=== PATIENT | male | born 1980 | race Caucasian/White ===

== ENCOUNTER → 2018-08-15 09:58 | Outpatient (CLI) | payer OTHER, MEDICAID, SELFPAY ==
[2018-08-15 10:37] LABS: Appearance Urine UA CLEAR; Bilirubin Urine UA NEGATIVE (NEGATIVE); Color Urine UA YELLOW; Glucose Urine UA NEGATIVE (Negative); Ketones Urine UA NEGATIVE (NEGATIVE); Leukocyte Esterase Urine UA NEGATIVE (NEGATIVE); Nitrite Urine UA NEGATIVE (Negative); Occult Blood Urine UA TRACE-LYSED (Negative); Protein Urine UA NEGATIVE (Negative); Urobilinogen Urine UA 0.2 E.U./dL (0.2)
[2018-08-15 10:43] LABS: Add Manual Diff / Slide Review NO; Basophils Absolute Auto 100 /uL (0-100); Basophils Percent Auto 1.2 % (0-2); Eosinophils Absolute Auto 100 /uL (0-450); Eosinophils Percent Auto 2.8 % (2-4); Hematocrit 45.9 % (41-53); Hemoglobin 15.5 g/dL (13.5-17.5); Lymphocytes Absolute Auto 2000 /uL (1100-4500); Lymphocytes Percent Auto 45.9 % (25-40); Mean Corpuscular HGB Conc 33.8 % (30-36); Mean Corpuscular Hemoglobin 32.2 PG (26-34); Mean Corpuscular Volume 95.1 fL (80-100); Monocytes Absolute Auto 400 /uL (0-900); Monocytes Percent Auto 9.1 % (3-14); Neutrophils Absolute Auto 1800 /uL (1500-7000); Platelet Count 275 X10^3/uL (150-400); Red Blood Cell Count 4.82 X10^6/uL (4.5-5.9); Red Cell Distribution Width 12.6 % (11.6-14.8); White Blood Cell Count 4.5 X10^3/uL (4.5-11.0)
[2018-08-15 10:47] LABS: Alanine Aminotransferase 31 IU/L (21-72); Albumin 4.8 g/dL (3.5-5.0); Albumin Globulin Ratio 1.5 (1.0-2.8); Alkaline Phosphatase 60 U/L (38-126); Aspartate Aminotransferase 29 IU/L (17-59); Bilirubin Total 1.1 mg/dL (0.2-1.3); Blood Urea Nitrogen 18 mg/dL (9-20); Calcium 9.7 mg/dL (8.4-10.2); Carbon Dioxide 29 mmol/L (22-32); Chloride 102 mmol/L (98-107); Cholesterol 215 mg/dL (140-199); Estimated Glomerular Filt Rate > 60.0 mL/min (>60); Globulin 3.3 g/dL (1.7-4.1); Glucose 93 mg/dL (70-100); HDL Cholesterol 54 mg/dL (40-60); HEMOLYSIS < 15 (0-50); LDL Cholesterol Calculated 146 mg/dL (<100); Potassium 4.2 mmol/L (3.4-5.1); Sodium 140 mmol/L (137-145); Total Protein 8.1 g/dL (6.3-8.2); Triglycerides 74 mg/dL (35-150)
[2018-08-15 11:14] LABS: Thyroid Stimulating Hormone 0.31 uIU/mL (0.47-4.68)
== END ==
PROVIDERS: PCP Family Medicine; Visit Provider Family Medicine
DX: Z00.00 Encounter for general adult medical examination without abnormal findings (principal); Z13.220 Encounter for screening for lipoid disorders; Z13.29 Encounter for screening for other suspected endocrine disorder
CPT/HCPCS: 36415; 80053; 80061; 81003; 84443; 85025

== ENCOUNTER → 2018-12-21 09:03 | Outpatient (CLI) | payer OTHER, MEDICAID, SELFPAY ==
[2018-12-21 12:03] LABS: Cholesterol 216 mg/dL (140-199); HDL Cholesterol 46 mg/dL (40-60); LDL Cholesterol Calculated 159 mg/dL (<100); Triglycerides 57 mg/dL (35-150)
[2018-12-21 12:35] LABS: Thyroid Stimulating Hormone 0.68 uIU/mL (0.47-4.68)
[2018-12-24 09:05] LABS: Fecal Immunochemical Test NOT DETECTED (NOT DETECTED)
== END ==
PROVIDERS: PCP Family Medicine; Visit Provider Family Medicine
DX: E78.5 Hyperlipidemia, unspecified (principal); R79.89 Other specified abnormal findings of blood chemistry; Z12.11 Encounter for screening for malignant neoplasm of colon
CPT/HCPCS: 36415; 80061; 82274; 84443

== ENCOUNTER → 2020-06-02 12:26 | Outpatient (CLI) | payer OTHER, MEDICAID, SELFPAY ==
--- NOTE | 2020-06-02 12:28 | DI.RAD.S_ITS ---
PROCEDURE: XR ANKLE RT MIN 3V INDICATIONS: right ankle pain TECHNIQUE: 3 views of the ankle were acquired. COMPARISON: [facility], , ANKLE 3 VIEWS RIGHT, 01/25/2014, 10:55. FINDINGS: Bones: No definite acute fractures or dislocations. Distal to the medial malleolus, there is a 4 mm well corticated rounded bone fragment seen. Ankle mortise is normally aligned. No suspicious bony lesions. The talar dome demonstrates no pascual abnormality. Soft tissues: Mild soft tissue swelling is seen medially. IMPRESSION: Remote appearing bone fragment seen distal to the medial malleolus, which is attributed to a remote fracture. Please correlate with focal tenderness of the medial malleolus. If there is point tenderness (or other clinical suspicion for a fracture not seen on these images) then a dedicated CT could be considered for further evaluation, as clinically appropriate. Dictated by: Az Montgomery M.D. on 06/02/2020 at 11:43 Approved by: Az Montgomery M.D. on 06/02/2020 at 11:45
== END ==
PROVIDERS: PCP Family Medicine; Referring Provider Physician Assistant; Visit Provider Physician Assistant
DX: M25.571 Pain in right ankle and joints of right foot (principal); M79.89 Other specified soft tissue disorders
CPT/HCPCS: 73610

== ENCOUNTER → 2020-06-21 08:03 | Outpatient (CLI) | payer OTHER, MEDICAID, SELFPAY ==
--- NOTE | 2020-06-21 | DI.MRI.S_ITS ---
PROCEDURE: MR ANKLE RT WO CON INDICATIONS: Right knee and ankle pain TECHNIQUE: Noncontrast sagittal T1 spin echo and T2 fast spin echo with fat saturation, axial proton density fast spin echo and T2 fast spin echo with fat saturation, coronal T1 spin echo and T2 fast spin echo with fat saturation through the ankle/hindfoot. COMPARISON: [facility], CR, XR ANKLE RT MIN 3V, 06/02/2020, 12:28. FINDINGS: Image quality: Excellent. Bones and joints: There is bone marrow edema anteriorly within the distal tibia along the tibiotalar joint with an associated nondisplaced fracture line. There is also corresponding bone marrow edema within the anterior process of the talus with an associated minimally displaced dorsal fracture. No hindfoot coalitions. No osteochondral injuries of the talar dome. There is a small tibiotalar joint effusion. Medial structures: The posterior tibialis, flexor digitorum longus, and flexor hallucis longus tendons are intact with minimal tenosynovial fluid. The posterior tibial neurovascular bundle appears normal within the tarsal tunnel, without extrinsic mass effect. The deltoid and spring ligaments appear intact. Lateral structures: The anterior talofibular, calcaneofibular, and posterior talofibular ligaments appear attenuated in signal consistent with sequelae of mild sprains.. More superiorly, the anterior and posterior tibiofibular ligaments appear thickened with intermediate signal consistent with sequelae of prior mild sprains. The intermalleolar ligament is also mildly attenuated in signal consistent with a mild sprain. The tibiofibular syndesmosis widened, measuring up to approximately 4 mm with a small amount of fluid between the distal tibia and fibula compatible with sequelae of a syndesmotic sprain. The peroneus longus and brevis tendons demonstrate normal location and morphology. Adjacent bony peroneal tubercle and retrotrochlear prominence are normal in size. The sinus tarsi demonstrates preserved fatty signal with mild edema which may reflect sequelae of mild ligamentous sprains. The calcaneonavicular and calcaneocuboid components of the bifurcate ligament appear intact. The dorsal calcaneocuboid ligament appears intact. Anterior structures: There is mild soft tissue edema anterior to the tibiotalar joint. The tibialis anterior, extensor hallucis longus, and extensor digitorum longus tendons appear intact. The dorsal talonavicular ligament appears intact. Posterior and plantar structures: Achilles tendon demonstrates mild tendinopathy and mild peritendinous edema distally without rupture. There is trace fluid in the retrocalcaneal bursa. There is a small region of thickening within the central cord of the plantar fascia approximately 2.5 cm from its origin suggesting sequelae of plantar fasciitis. No abductor digiti quinti muscle atrophy to suggest Mota neuropathy. IMPRESSION: 1. Bone contusions and relatively nondisplaced fractures of the tibia and talus along the anterior tibiotalar joint suggesting sequelae of a hyperflexion injury. 2. Small tibiotalar joint effusion. 3. Sequelae of prior mild sprains of the lateral ankle ligaments as described as well as mild widening of the distal tibial fibular syndesmosis consistent with sequelae of a syndesmotic sprain. 4. Mild tendinopathy and peritendinitis along the distal Achilles tendon without evidence of rupture. Dictated by: Eric Staples M.D. on 06/22/2020 at 14:59 Approved by: Eric Staples M.D. on 06/22/2020 at 15:05
--- NOTE | 2020-06-21 | DI.MRI.S_ITS ---
PROCEDURE: MR KNEE RT WO CON INDICATIONS: Right knee injury. TECHNIQUE: Noncontrast sagittal PD fast spin echo and T2 fast spin echo with fat saturation, sagittal 3-D FLASH with fat saturation; coronal T1 spin echo and PD fast spin echo with fat saturation, and axial PD fast spin echo with fat saturation through the knee. COMPARISON: [facility], CR, XR KNEE ARTHRITIC SERIES RT, 06/13/2020, 16:11. FINDINGS: Image quality: Excellent. Menisci: There is linear horizontally oriented high T2 signal intensity within the posterior horn medial meniscus, demonstrating inferior articular surface extension, indicating horizontal tearing. Lateral meniscus is intact. Cruciate ligaments: The anterior and posterior cruciate ligaments appear intact. Medial structures: The medial collateral ligament appears intact. Visualized portions of the pes anserinus tendons appear normal. Small amount of medial bursal fluid. Lateral structures: The lateral collateral ligament, long and short heads of the biceps femoris tendon appear intact. The popliteus tendon appears normal. Iliotibial band appears normal. Anterior structures: The quadriceps and patellar tendons appear intact. Patellar alignment is normal. No femoral trochlear dysplasia or ventral trochlear prominence. No edema in the infrapatellar fat pad. Bones and cartilage: Moderate ill-defined T2 signal elevation within the inferomedial aspect of the patella, as well as the anteromedial aspect of the medial femoral condyle, consistent with contusion, given the history of recent injury. Mild diffuse articular cartilage loss overlies the weight-bearing aspects of the medial femoral condyle and medial tibial plateau. Moderate articular cartilage loss overlies the medial aspect of the medial patellar facet, consistent with cartilaginous injury. Joint space: There is physiologic knee joint fluid. No Friedman's cyst. Normal appearing synovial plicae are incidentally noted. IMPRESSION: 1. Contusions within the medial patella and medial femoral condyle. 2. Posterior horn medial meniscal tear. 3. Medial patellar are cartilaginous injury. 4. Medial bursitis. Dictated by: Gianluca Abreu M.D. on 06/21/2020 at 9:06 Approved by: Gianluca Abreu M.D. on 06/21/2020 at 9:09
== END ==
PROVIDERS: Referring Provider Physician Assistant Medical; Visit Provider Physician Assistant Medical
DX: S82.201A Unspecified fracture of shaft of right tibia, initial encounter for closed fracture (principal); S92.101A Unspecified fracture of right talus, initial encounter for closed fracture; S93.401A Sprain of unspecified ligament of right ankle, initial encounter; M76.61 Achilles tendinitis, right leg; M25.471 Effusion, right ankle; S80.01XA Contusion of right knee, initial encounter; S30.1XXA Contusion of abdominal wall, initial encounter; S83.241A Other tear of medial meniscus, current injury, right knee, initial encounter; M70.51 Other bursitis of knee, right knee
CPT/HCPCS: 73721

== ENCOUNTER → 2021-12-27 09:00 | Outpatient (CLI) | payer OTHER, MEDICAID, SELFPAY ==
[2021-12-27 09:57] LABS: Add Manual Diff / Slide Review NO; Basophils Absolute Auto 0 /uL (0-100); Basophils Percent Auto 0.4 % (0-2); Eosinophils Absolute Auto 100 /uL (0-450); Eosinophils Percent Auto 1.4 % (2-4); Hematocrit 41.9 % (41-53); Hemoglobin 14.5 g/dL (13.5-17.5); Lymphocytes Absolute Auto 1200 /uL (1100-4500); Mean Corpuscular HGB Conc 34.7 % (30-36); Mean Corpuscular Hemoglobin 32.6 PG (26-34); Mean Corpuscular Volume 94.1 fL (80-100); Monocytes Absolute Auto 800 /uL (0-900); Monocytes Percent Auto 8.6 % (3-14); Neutrophils Absolute Auto 7300 /uL (1500-7000); Neutrophils Percent Auto 76.6 % (50-75); Platelet Count 279 X10^3/uL (150-400); Red Blood Cell Count 4.45 X10^6/uL (4.5-5.9); Red Cell Distribution Width 12.1 % (11.6-14.8); White Blood Cell Count 9.6 X10^3/uL (4.5-11.0)
[2021-12-27 10:10] LABS: Alanine Aminotransferase 20 IU/L (<50); Albumin 4.4 g/dL (3.5-5.0); Albumin Globulin Ratio 1.5 (1.0-2.8); Alkaline Phosphatase 69 U/L (38-126); Aspartate Aminotransferase 32 IU/L (17-59); BUN Creatinine Ratio 12.1 (6-22); Blood Urea Nitrogen 11 mg/dL (9-20); Calcium 9.1 mg/dL (8.4-10.2); Carbon Dioxide 28 mmol/L (22-32); Chloride 102 mmol/L (98-107); Cholesterol 174 mg/dL (140-199); Estimated Glomerular Filt Rate > 60 mL/min (>60); Glucose 95 mg/dL (70-100); HDL Cholesterol 51 mg/dL (40-60); HEMOLYSIS < 15 (0-50); LDL Cholesterol Calculated 114 mg/dL (<100); Potassium 4.6 mmol/L (3.4-5.1); Sodium 138 mmol/L (137-145); Total Protein 7.4 g/dL (6.3-8.2); Triglycerides 47 mg/dL (35-150)
[2021-12-27 10:56] LABS: Vitamin B12 473 pg/mL (239-931)
[2021-12-27 12:23] LABS: Urine N gonorrhoeae NOT DETECTED
[2021-12-27 12:51] LABS: Urine Chlamydia NOT DETECTED
[2021-12-27 17:48] LABS: Hepatitis B Surface Antigen NEGATIVE s/c (NEGATIVE)
[2021-12-27 18:06] LABS: HIV 1 & 2 Ab/Ag 4th Gen Combo NEGATIVE (NEGATIVE); Hep C Virus Ab w/Reflex Quant NEGATIVE s/c (NEGATIVE)
== END ==
PROVIDERS: PCP Family Medicine; Referring Provider Family Medicine; Visit Provider Family Medicine
DX: Z00.00 Encounter for general adult medical examination without abnormal findings (principal)
CPT/HCPCS: 36415; 80053; 80061; 82306; 82607; 85025; 86803; 87340; 87389; 87491; 87591

== ENCOUNTER → 2022-04-09 10:46 | Outpatient (CLI) | payer OTHER, MEDICAID, SELFPAY ==
[2022-04-09 11:03] LABS: Semen Sperm Prescence Post-Vas Present (ABSENT)
== END ==
PROVIDERS: PCP Family Medicine; Referring Provider Family Medicine; Visit Provider Family Medicine
DX: Z30.2 Encounter for sterilization (principal)
CPT/HCPCS: 89321

== ENCOUNTER → 2023-08-27 07:32 | Outpatient (CLI) | payer OTHER, MEDICAID, SELFPAY ==
[2023-08-27 08:43] LABS: Alanine Aminotransferase 30 IU/L (<50); Albumin 4.2 g/dL (3.5-5.0); Albumin Globulin Ratio 1.2 (1.0-2.8); Alkaline Phosphatase 74 U/L (38-126); Aspartate Aminotransferase 31 IU/L (17-59); BUN Creatinine Ratio 14.4 (6-22); Blood Urea Nitrogen 14 mg/dL (9-20); Calcium 9.5 mg/dL (8.4-10.2); Carbon Dioxide 28 mmol/L (22-32); Chloride 101 mmol/L (98-107); Cholesterol 190 mg/dL (140-199); Estimated Glomerular Filt Rate > 60 mL/min (>60); Globulin 3.4 g/dL (1.7-4.1); Glucose 89 mg/dL (70-100); HDL Cholesterol 45 mg/dL (40-60); HEMOLYSIS < 15 (0-50); LDL Cholesterol Calculated 129 mg/dL (<100); Potassium 4.5 mmol/L (3.4-5.1); Sodium 137 mmol/L (137-145); Total Protein 7.6 g/dL (6.3-8.2); Triglycerides 79 mg/dL (35-150)
[2023-08-27 10:09] LABS: Vitamin D 25 Hydroxy (D3) 32.5 ng/mL (30.0-100.0)
== END ==
PROVIDERS: PCP Family Medicine; Referring Provider Family Medicine; Visit Provider Family Medicine
DX: Z00.00 Encounter for general adult medical examination without abnormal findings (principal); R79.89 Other specified abnormal findings of blood chemistry
CPT/HCPCS: 36415; 80053; 80061; 82306

== ENCOUNTER → 2024-06-24 10:42 | Outpatient (CLI) | payer OTHER, MEDICAID, SELFPAY ==
[2024-06-24 11:30] LABS: Appearance Urine UA CLEAR; Bilirubin Urine UA NEGATIVE (NEGATIVE); Color Urine UA YELLOW; Glucose Urine UA NEGATIVE (Negative); Ketones Urine UA NEGATIVE (NEGATIVE); Leukocyte Esterase Urine UA NEGATIVE (NEGATIVE); Nitrite Urine UA NEGATIVE (Negative); Occult Blood Urine UA NEGATIVE (Negative); Protein Urine UA NEGATIVE (Negative); Urobilinogen Urine UA 0.2 E.U./dL (0.2)
[2024-06-24 11:38] LABS: Bacteria Urine None Seen; Culture Indicated Urine Cult Not Indicated; RBC Urine None Seen (0-5/HPF); Squamous Epithelial Cell Urine None Seen (0-5/HPF); Urine Volume 10mL (spun); WBC Urine None Seen (0-5/HPF)
[2024-06-24 12:53] LABS: Urine Chlamydia NOT DETECTED; Urine N gonorrhoeae NOT DETECTED
[2024-06-24 15:27] LABS: HIV 1 & 2 Ab/Ag 4th Gen Combo NEGATIVE (NEGATIVE); Hep C Virus Ab w/Reflex Quant NEGATIVE s/c (NEGATIVE)
[2024-06-25 04:37] LABS: RPR Screen Non Reactive (Non Reactive)
[2024-06-25 06:11] LABS: HBsAg Screen Negative (Negative); Hepatitis A Antibody IgM Negative (Negative); Hepatitis B Core Antibody IgM Negative (Negative); Hepatitis C Antibody Non Reactive (Non Reactive)
== END ==
PROVIDERS: PCP Family Medicine; Referring Provider Family Medicine; Visit Provider Family Medicine
DX: Z11.3 Encounter for screening for infections with a predominantly sexual mode of transmission (principal); L98.9 Disorder of the skin and subcutaneous tissue, unspecified
CPT/HCPCS: 36415; 80074; 81001; 86592; 86695; 86696; 86803; 87389; 87491; 87591

== ENCOUNTER 2024-09-10 11:46 | Day surgery (SDC) | payer OTHER, SELFPAY ==
[2024-09-10 12:16] VITALS: BP 140/79; PULSE 63; RESP 18; TEMP 36.3; O2SAT 99
[2024-09-10] MEDS: LACTATED RINGERS 1,000 ML 42 ML IV (12:25)
--- NOTE | 2024-09-10 12:26 | PM.HP.IH.1 ---
History of Present Illness History of Present Illness Date Patient Seen: 09/10/24 Time Patient Seen: 12:26 Chief complaint: [facility] [place]: 44-year-old white male presents for initial screening colonoscopy. No changes in bowel habits. [facility] Medical History (Updated 09/10/24 @ 12:27 by Jayden Oconnell MD) Colon cancer screening (09/10/24) Routine screening for STI (sexually transmitted infection) Skin lesion Achilles tendinitis of both lower extremities Well adult exam Vision disorder Preventative health care Ankle pain (~2011) Chicken pox (~1984) Surgical History Anesthesia Meredith teeth removed (~1997) Family History Father Hypertension Brother Hypertension Sister Mental health problem Grandmother Stroke Hypertension Mother Rheumatoid arthritis Grandfather History of heart attack Grandfather Cancer Social History Smoking Status: Never smoker alcohol intake: never Meds Home Medications and Allergies Home Medications Medication Instructions Recorded Confirmed Type No Known Home Medications 09/10/24 09/10/24 History Allergies Allergy/AdvReac Type Severity Reaction Status Date / Time No Known Drug Allergies Allergy Verified 09/10/24 12:07 Review of Systems Review of Systems ROS: Yes All systems reviewed with the patient and are negative except as otherwise documented Exam Vital Signs (past 8 hours): - 09/10/24 12:16 Temperature 97.3 F L Pulse Rate 63 Respiratory Rate 18 Blood Pressure 140/79 Pulse Oximetry 99 Oxygen Delivery Method Room Air Oxygen Delivery Method Room Air Narrative Exam Narrative: Gen: NAD, sitting comfortably in bed, appears well HEENT: Sclera are anicteric, head is normocephalic and atraumatic, trachea is midline. CV: RRR, no JVD Resp: clear to auscultation bilaterally, equal chest wall movement bilaterally Abd: soft, nontender, normoactive bowel sounds Ext: no edema, full range of motion Neuro: Cranial nerves II-XII grossly intact, no focal deficits Skin: No erythema or ecchymosis Assessment & Plan Assessment and plan (1) Colon cancer screening: Status: Acute Assessment & Plan narrative: Patient presents for colonoscopy Risks, benefits, alternatives to colonoscopy explained, including but not limited to bowel perforation or other serious complication requiring surgery at less than 1 in 5000 colonoscopies, abdominal pain, cramping or bleeding and less than 1% of colonoscopies, and the chances that we find a diagnosis that would require further intervention of about 2%. Patient agrees to proceed. Time-Based Coding :: [TOTAL MINUTES] spent with patient and on the chart (including review of chart, obtaining history, exam, reviewing outside data, placing orders, documenting exam and treatment plan, and counseling patient) on [DATE]. PROFEE Process Laboratory Specialist Document charge(s): No
--- NOTE | 2024-09-10 12:45 | P.OP.COLON_ITS ---
Operative Date/Time/Diagnoses Date of procedure: 09/10/24 Time of procedure: 12:46 Pre-op diagnosis: Colon screening Post-op diagnosis: same Procedure & Clinicians Study performed: Colonoscopy Same procedure as scheduled: Yes Indications: Colon screening Surgeon: Jayden Oconnell Procedure Notes SCOAP/Timeout: Performed Procedure in detail: Time-out was performed. Mac was induced. Patient was placed in left lateral d ecubitus position. The perineum was inspected without any gross abnormality. Lubricated pediatric colonoscope was inserted and advanced to the cecum. The terminal ileum was intubated. The colonoscope was withdrawn slowly inspecting the circumference of the colon. Very small polyps may have been missed, prep quality was adequate. Retroflexed view of the rectum showed small, non prolapsed nonbleeding internal hemorrhoids. The scope was withdrawn the patient was taken to PACU in good condition. Scope withdrawal time: 7 Sedation minutes: 12 Specimen(s): none sent Complications: none Post-procedure Recommendations: Colonoscopy in 10 years Follow up: as needed Disposition: PACU
[2024-09-10 12:46] VITALS: BP 103/54; PULSE 67; RESP 12; TEMP 36.6; O2SAT 97
[2024-09-10 12:52] VITALS: BP 101/54; PULSE 69; RESP 16; O2SAT 98
[2024-09-10 12:56] VITALS: BP 106/59; PULSE 66; RESP 16; TEMP 36.6; O2SAT 98
[2024-09-10 13:01] VITALS: BP 109/67; PULSE 58; RESP 14; O2SAT 99
== END 2024-09-10 13:20 | disposition home or self-care (01) ==
PROVIDERS: Family Provider Family Medicine; PCP Family Medicine; Referring Provider Surgery; Visit Provider Surgery
PROC: 0DJD8ZZ Inspection of Lower Intestinal Tract, Via Natural or Artificial Opening Endoscopic (ICD-10-PCS; CPT 45378; principal; 2024-09-10 12:45)
DX: Z12.11 Encounter for screening for malignant neoplasm of colon (principal); K64.8 Other hemorrhoids
CPT/HCPCS: 45378; 45385; J2704

== ENCOUNTER 2024-09-14 10:45 | Outpatient (RCR) | payer OTHER, MEDICAID, SELFPAY ==
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
== END 2024-09-16 13:52 | disposition home or self-care (01) ==
LOC: PHYS 10:45
PROVIDERS: Family Provider Family Medicine; PCP Family Medicine; Referring Provider Family Medicine; Visit Provider Family Medicine
DX: M25.571 Pain in right ankle and joints of right foot (principal); M76.60 Achilles tendinitis, unspecified leg; M79.673 Pain in unspecified foot
CPT/HCPCS: 97110; 97140; 97161; 97535

== ENCOUNTER → 2025-06-09 12:25 | Outpatient (CLI) | payer OTHER, SELFPAY ==
--- NOTE | 2025-06-09 12:26 | DI.RAD.S_ITS ---
PROCEDURE: XR SHOULDER RT 3V
== END ==
PROVIDERS: PCP Family Medicine; Referring Provider Family Medicine; Visit Provider Family Medicine
DX: M25.511 Pain in right shoulder (principal); M25.711 Osteophyte, right shoulder
CPT/HCPCS: 73030

== ENCOUNTER → 2025-07-31 15:42 | Outpatient (CLI) | payer OTHER, SELFPAY ==
--- NOTE | 2025-07-31 15:44 | DI.MRI.S_ITS ---
PROCEDURE: MR SHOULDER RT WO CON INDICATIONS: eval RTC TECHNIQUE: Noncontrast oblique coronal T2 fast spin echo with fat saturation, oblique sagittal T1 spin echo and T2 fast spin echo with fat saturation, axial T1 spin echo and T2 fast spin echo with fat saturation through the shoulder. COMPARISON: None. FINDINGS: Quality: Adequate. Tendons: Rotator cuff tendons: Less than 50 percent thickness articular insertional tear of the anterior most fibers of the supraspinatus tendon. Less than 50 percent thickness articular surgeon all tear of the subscapularis tendon. Teres minor and infraspinatus tendons are intact. Long head of biceps tendon: Intact. No dislocation. Muscles: No disproportionate fatty degeneration of the rotator cuff musculature. Acromioclavicular joint: Unremarkable. Glenohumeral joint: Labrum: Superior labral anterior posterior tear.. Cartilage: No focal defect. Fluid: Small effusion. Capsule: No pericapsular inflammation or scarring. Alignment: No dislocation. Bursa: Subacromial/subdeltoid bursa: Trace fluid. Subcoracoid bursa: Nondistended. Bones: No fracture. IMPRESSION: Intermediate-grade partial-thickness supraspinatus and subscapularis tendon tears. Superior labral anterior posterior tear. Small effusion. Subacromial/subdeltoid bursitis. Dictated by: Abdulaziz Acevedo M.D. on 08/01/2025 at 8:41 Approved by: Abdulaziz Acevedo M.D. on 08/01/2025 at 8:47
== END ==
LOC: MRI 15:42
PROVIDERS: PCP Family Medicine; Referring Provider Orthopaedic Surgery; Visit Provider Orthopaedic Surgery
DX: S43.431A Superior glenoid labrum lesion of right shoulder, initial encounter (principal); S46.001D Unspecified injury of muscle(s) and tendon(s) of the rotator cuff of right shoulder, subsequent encounter; M75.01 Adhesive capsulitis of right shoulder; M25.411 Effusion, right shoulder; M75.51 Bursitis of right shoulder
CPT/HCPCS: 73221